=== PATIENT | female | born 1980 | race African-American/Black ===

== ENCOUNTER → 2021-03-06 | Outpatient (CLI) | payer OTHER ==
--- NOTE | 2021-03-08 08:09 | KCIC ---
Examination: 3 views of the bilateral knees HISTORY: Chronic left knee pain COMPARISON: None available. FINDINGS: The alignment of the bilateral changes grossly appears unremarkable. There is small right knee joint effusion in suprapatellar region. Minimal left knee joint effusion. Mild joint space loss medial, lat eral, patellofemoral compartments. There is no acute fracture or dislocation identified IMPRESSION: 1. Mild tricompartmental degenerative changes bilateral knee joints. 2. Small right knee joint effusion in the suprapatellar region. Electronically signed by: Lee Arenas MD (03/08/2021 8:07 AM) [id number]
== END ==
LOC: KCIC 16:08
PROVIDERS: ATTEND Family Medicine
DX: M17.0 Bilateral primary osteoarthritis of knee (principal); M25.461 Effusion, right knee
CPT/HCPCS: 73562-50